=== PATIENT | male | born 1990 | race Caucasian/White ===

== ENCOUNTER 2018-11-04 07:43 | Outpatient (CLI) | payer OTHER ==
--- NOTE | 2018-11-04 10:36 | MRI Report ---
Reason: CERVICALGIA Procedure Date: 11/04/2018 Accession Number: [id number] / [id number] Procedure: MRI - Cervical Spine W/O CPT Code: FULL RESULT: EXAM: MRI CERVICAL SPINE WITHOUT CONTRAST EXAM DATE: 11/04/2018 08:20 AM. CLINICAL HISTORY: Cervicalgia. Numbness. COMPARISONS: None. TECHNIQUE: Multiplanar, multisequence T1-weighted and fluid-sensitive sequences of the cervical spine without contrast. Other: None. FINDINGS: Neurologic Structures: The visualized posterior fossa structures are unremarkable. No signal abnormality in the visualized spinal cord. Alignment: No scoliosis or spondylolisthesis. Bone Marrow: No gross fractures or bone lesions. No marrow edema. Interspace Levels/Facets: C1-C2: Unremarkable. C2-C3: Unremarkable. C3-C4: Shallow circumferential disk bulge but no focal extrusion or significant stenosis. C4-C5: Shallow circumferential disk bulge with no focal extrusion or significant stenosis. C5-C6: Mild disk space dehydration and narrowing. Anterior spurring. Shallow circumferential disk bulge. Larger uncinate process hypertrophy and spurring on the right than on the left. Prominent asymmetric broad-based posterior disk protrusion with osteophyte, right of midline measuring at least 13 mm wide and 5-6 mm deep. Mild central stenosis anteriorly with cord flattening. Moderate to severe right lateral recess stenosis and moderately prominent stenosis also of the medial right foramen. Correlate to a right C6 radiculopathy. Left foraminal stenosis at this level is mild. C6-C7: Mild degenerative disk disease. Shallow circumferential disk bulge. Additional left intraforaminal disk protrusion associated with mild to moderate stenosis. Patent central canal and right foramen. C7-T1: Unremarkable. Musculature: Normal. No edema or fatty atrophy. Other: The paravertebral and prevertebral soft tissues are normal. IMPRESSION: 1. Prominent asymmetric right of midline posterior disk osteophyte complex with potentially significant stenosis at C5-C6, correlate to a right C6 radiculopathy. 2. Mild to moderate foraminal stenosis on the left at C6-C7. 3. No focal cord signal abnormality. [facility]
== END 2018-11-04 07:44 | disposition home or self-care (01) ==
LOC: DI 07:43
PROVIDERS: ATTEND Radiology Diagnostic Radiology
DX: M50.323 Other cervical disc degeneration at C6-C7 level (principal); M50.222 Other cervical disc displacement at C5-C6 level; M48.02 Spinal stenosis, cervical region; M25.78 Osteophyte, vertebrae
CPT/HCPCS: 72141